=== PATIENT | male | born 1955 | race African-American/Black ===

== ENCOUNTER 2016-09-11 17:00 | Emergency (ER) | payer OTHER ==
[~2016-09-11] VITALS: Ht 180.3 cm; Wt 97.5 kg
[~2016-09-11 17:00] MED LIST: BACTRIM-DS1 EA ORAL
[2016-09-11] MEDS ORDERED: ANDROGEL2.5 GM TD (17:27)
--- NOTE | 2016-09-11 17:39 | Emergency Room Report ---
History of Present Illness General Chief Complaint: Pain Source: Patient Present Illness HPI Patient present with complaints of bodyaches Reports that initially he felt a sensitivity to the skin That progressed into more of an achy feeling Denies any obvious fevers denies any chest pain or shortness of breath denies any back or flank pain denies any vomiting or diarrhea Denies any change in medications Denies any recent travel or trauma Allergies: Coded Allergies: No Known Allergies (Unverified , 07/23/13) Patient History Past Medical History: see triage record Pertinent Family History: none Reviewed Nursing Documentation: PMH: Agreed, PSxH: Agreed Nursing Documentation-PMH Past Medical History: No Stated History Review of Systems All Other Systems: negative except mentioned in HPI Physical Exam Vital Signs Date Time Temp Pulse Resp B/P Pulse Ox O2 Delivery O2 Flow Rate FiO2 09/11/16 17:24 97.9 60 14 135/81 100 Room Air Sp02 EP Interpretation: reviewed, normal General Appearance: well appearing, no apparent distress Head: normocephalic, atraumatic Eyes: bilateral eye EOMI, bilateral eye PERRL ENT: hearing grossly normal, normal pharynx, TMs + canals normal, uvula midline Neck: full range of motion, supple, no meningismus, no bony tend Respiratory: lungs clear, normal breath sounds, no rhonchi, no respiratory distress, no retraction, no accessory muscle use Cardiovascular #1: normal peripheral pulses, regular rate, rhythm, no edema, no gallop, no JVD, no murmur Gastrointestinal: normal bowel sounds, non tender, soft, no mass, no organomegaly, non-distended, no guarding, no hernia, no pulsatile mass, no rebound Genitourinary: no CVA tenderness Musculoskeletal: normal inspection Neurologic: oriented x3, responsive, caterer helper III-XII nml as tested, motor strength/ tone normal, sensory intact Psychiatric: mood/affect normal Skin: normal color, no rash, warm/dry, palpation normal Lymphatic: normal inspection, no adenopathy Medical Decision Making Diagnostic Impression: Primary Impression: Myalgia ER Course Multiple differentials are considered Including but not limited to rhabdomyolysis, flulike symptoms bacteremia Patient's , baseline bloodwork were appropriate patient remains hemodynamically stable Appears patient has been underdosing himself with one [id number] Advil for the discomfort Possible viral syndrome considered and patient will have initial conservative outpatient followup Labs Test 09/11/16 17:48 White Blood Count 9.1 K/UL (4.8-10.8) Red Blood Count 5.38 M/UL (4.70-6.10) Hemoglobin 16.1 G/DL (14.2-18.0) Hematocrit 47.9 % (42.0-52.0) Mean Corpuscular Volume 89 FL (80-99) Mean Corpuscular Hemoglobin 29.9 PG (27.0-31.0) Mean Corpuscular Hemoglobin Concent 33.7 G/DL (32.0-36.0) Red Cell Distribution Width 11.4 % (11.6-14.8) Platelet Count 217 K/UL (150-450) Mean Platelet Volume 6.4 FL (6.5-10.1) Neutrophils (%) (Auto) 75.4 % (45.0-75.0) Lymphocytes (%) (Auto) 16.7 % (20.0-45.0) Monocytes (%) (Auto) 6.1 % (1.0-10.0) Eosinophils (%) (Auto) 1.4 % (0.0-3.0) Basophils (%) (Auto) 0.5 % (0.0-2.0) Sodium Level 140 mEQ/L (135-145) Potassium Level 3.6 mEQ/L (3.4-4.9) Chloride Level 98 mEQ/L (98-107) Carbon Dioxide Level 27 mEQ/L (20-30) Anion Gap 15 (5-15) Blood Urea Nitrogen 17 mg/dL (7-23) Creatinine 1.2 mg/dL (0.7-1.2) Estimat Glomerular Filtration Rate > 60 mL/min (>60) Glucose Level 101 mg/dL (74-106) Calcium Level 9.3 mg/dL (8.6-10.2) Total Bilirubin 0.5 mg/dL (0.0-1.2) Aspartate Amino Transf (AST/SGOT) 15 U/L (5-40) Alanine Aminotransferase (ALT/SGPT) 11 U/L (3-41) Alkaline Phosphatase 68 U/L (40-129) Total Creatine Kinase 99 U/L (38-174) Total Protein 6.9 g/dL (6.6-8.7) Albumin 4.2 g/dL (3.5-5.2) Globulin 2.7 g/dL Albumin/Globulin Ratio 1.5 (1.0-2.7) Lipase 41 U/L (< 60) Last Vital Signs Date Time Temp Pulse Resp B/P Pulse Ox O2 Delivery O2 Flow Rate FiO2 09/11/16 17:24 97.9 60 14 135/81 100 Room Air Status: unchanged Disposition: HOME, SELF-CARE Condition: Stable Additional Instructions: Patient is provided with the discharge instructions notified to follow up with primary doctor in the next 2-3 days otherwise return to the er with any worsening symptoms. Please note that this report is being documented using [employer] technology. This can lead to erroneous entry secondary to incorrect interpretation by the dictating instrument. JUAN RAMON HILL D.O. Sep 11, 2016 17:39
[2016-09-11 18:10] LABS: BASOPHILS % (AUTO) 0.5 % (0.0-2.0); EOSINOPHILS % (AUTO) 1.4 % (0.0-3.0); LYMPHOCYTES % (AUTO) 16.7 % (20.0-45.0); MEAN CORPUSCULAR HEMOGLOBIN 29.9 PG (27.0-31.0); MEAN CORPUSCULAR HGB CONC 33.7 G/DL (32.0-36.0); MEAN CORPUSCULAR VOLUME 89 FL (80-99); MEAN PLATELET VOLUME 6.4 FL (6.5-10.1); MONOCYTES % (AUTO) 6.1 % (1.0-10.0); NEUTROPHILS % (AUTO) 75.4 % (45.0-75.0); PLATELET COUNT 217 K/UL (150-450); RED BLOOD COUNT 5.38 M/UL (4.70-6.10); RED CELL DISTRIBUTION WIDTH 11.4 % (11.6-14.8); WHITE BLOOD COUNT 9.1 K/UL (4.8-10.8)
[2016-09-11 18:23] LABS: ALANINE AMINOTRANSFERASE 11 U/L (3-41); ALBUMIN/GLOBULIN RATIO 1.5 (1.0-2.7); ANION GAP 15 (5-15); ASPARTATE AMINO TRANSFERASE 15 U/L (5-40); CALCIUM 9.3 mg/dL (8.6-10.2); CARBON DIOXIDE 27 mEQ/L (20-30); CHLORIDE 98 mEQ/L (98-107); CREATININE 1.2 mg/dL (0.7-1.2); GLOMERULAR FILTRATION RATE > 60 mL/min (>60); HEMOLYSIS 10; LIPASE 41 U/L (< 60); POTASSIUM 3.6 mEQ/L (3.4-4.9); SODIUM 140 mEQ/L (135-145); TOTAL PROTEIN 6.9 g/dL (6.6-8.7)
[2016-09-11 19:03] VITALS: BP 127/75
== END 2016-09-11 19:06 | disposition home or self-care (01) ==
LOC: EMR 17:55
DX: M79.1 Myalgia (principal)
CPT/HCPCS: 36415; 80053; 82550; 83690; 85025; 99283

== ENCOUNTER 2016-09-15 10:09 | Emergency (ER) | payer OTHER ==
[~2016-09-15] VITALS: Ht 182.9 cm; Wt 97.5 kg
[~2016-09-15 10:09] MED LIST changes: +ANDROGEL2.5 GM TD
[2016-09-15] MEDS ORDERED: ANDROGEL2.5 GM TD (10:22)
[2016-09-15 11:00] VITALS: BP 141/82
[2016-09-15] MEDS ORDERED: CYCLOBENZAPRINE10 MG ORAL (11:11)
[2016-09-15] MEDS ORDERED: TYLENOL EXTRA500 MG ORAL (11:11)
[2016-09-15] MEDS ORDERED: RANITIDINE HCL150 MG ORAL (11:11)
[2016-09-15 11:15] VITALS: BP 141/82
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
== END 2016-09-15 11:15 | disposition home or self-care (01) ==
LOC: EMR 10:35
DX: S39.82XD Other specified injuries of lower back, subsequent encounter (principal); V49.9XXD Car occupant (driver) (passenger) injured in unspecified traffic accident, subsequent encounter
CPT/HCPCS: 99284

== ENCOUNTER 2017-04-17 00:06 | Emergency (ER) | payer OTHER ==
[~2017-04-17] VITALS: Ht 180.3 cm; Wt 97.5 kg
[~2017-04-17 00:06] MED LIST changes: +CYCLOBENZAPRINE10 MG ORAL; +RANITIDINE HCL150 MG ORAL; +TYLENOL EXTRA500 MG ORAL
[2017-04-17] MEDS: Acetaminophen 500mg (ES) tab ORAL ONE ×2 (00:24→00:33)
[2017-04-17] MEDS ORDERED: AMOXICILLIN500 MG ORAL (00:43)
[2017-04-17] MEDS ORDERED: PROMETHAZINE-C118 M1 ORAL (00:43)
[2017-04-17 00:53] VITALS: BP 128/78
[2017-04-17 00:54] VITALS: BP 134/78
--- NOTE | 2017-04-17 04:55 | Emergency Room Report ---
History of Present Illness General Chief Complaint: Fever Source: Patient Present Illness HPI 61-year-old male presents ED complaining of cough and fever x3 days. Patient notes productive cough with chills. Patient is febrile in triage. Patient denies shortness of breath. Denies sick contacts or recent travel. Denies chest pain. No other aggravating relieving factors. Denies any other associated symptoms Allergies: Coded Allergies: No Known Allergies (Unverified , 07/23/13) Patient History Past Medical History: none Past Surgical History: none Pertinent Family History: none Social History: Denies: smoking, alcohol use, drug use Immunizations: UTD Reviewed Nursing Documentation: PMH: Agreed, PSxH: Agreed Nursing Documentation-PMH Past Medical History: No Stated History Review of Systems All Other Systems: negative except mentioned in HPI Physical Exam Vital Signs Date Time Temp Pulse Resp B/P (MAP) Pulse Ox O2 Delivery O2 Flow Rate FiO2 04/17/17 00:14 102.7 93 19 134/78 96 Room Air Sp02 EP Interpretation: reviewed, normal General Appearance: no apparent distress, alert, GCS 15, non-toxic Head: normocephalic, atraumatic Eyes: bilateral eye normal inspection, bilateral eye PERRL ENT: hearing grossly normal, normal pharynx, no angioedema, normal voice Neck: full range of motion, supple/symm/no masses Respiratory: chest non-tender, normal breath sounds, crackles, speaking full sentences Cardiovascular #1: regular rate, rhythm, no edema Cardiovascular #2: 2+ carotid (R), 2+ carotid (L), 2+ radial (R), 2+ radial (L) , 2+ dorsalis pedis (R), 2+ dorsalis pedis (L) Gastrointestinal: normal bowel sounds, non tender, soft, non-distended, no guarding, no rebound Rectal: deferred Genitourinary: normal inspection, no CVA tenderness Musculoskeletal: back normal, gait/station normal, normal range of motion, non- tender Neurologic: alert, oriented x3, responsive, motor strength/tone normal, sensory intact, speech normal Psychiatric: judgement/insight normal, memory normal, mood/affect normal, no suicidal/homicidal ideation Reflexes: 3+ bicep (R), 3+ bicep (L), 3+ tricep (R), 3+ tricep (L), 3+ knee (R) , 3+ knee (L) Skin: normal color, no rash, warm/dry, well hydrated Lymphatic: no adenopathy Medical Decision Making Diagnostic Impression: Primary Impression: Atypical pneumonia ER Course 61-year-old male presents ED complaining of cough, fever Differential-URI, bronchitis, pneumonia Patient based on stretcher. After initial history I ordered Motrin, chest x-ray Chest x-ray shows no lobar infiltrate however there is some atelectasis in the bases with some effusion. Clinically we will treat as a typical pneumonia and prescribed antibiotics per CURB 65 criteria, patient can be safely discharged home and can be treated as outpatient given amoxicillin in ED Diagnosis - atypical pneumonia stable and discharged to home with Rx Amoxicillin, cough syrup. f/up with pMD. return to ED if symptoms recur/worsen Chest X-Ray Diagnostic Results Chest X-Ray Diagnostic Results : Chest X-Ray Ordered: Yes # of Views/Limited/Complete: 1 View Indication: Other - cough EP Interpretation: Yes Interpretation: no consolidation, no pneumothorax, no acute cardiopulmonary disease, other - bilateral effusion/atelectasis Impression: Other - ateletasis Electronically Signed by: Electronically signed by Power Che MD Last Vital Signs Date Time Temp Pulse Resp B/P (MAP) Pulse Ox O2 Delivery O2 Flow Rate FiO2 04/17/17 00:54 102.7 19 134/78 96 Room Air 04/17/17 00:53 80 Status: improved Disposition: HOME, SELF-CARE Condition: Stable Scripts Codeine/Promethazine Hcl* (PROMETHAZINE-CODEINE SYRUP*) 118 Ml Syrup 5 ML ORAL Q4H Y for For Cough, #118 ML 0 Refills Prov: POWER CHE M.D. 04/17/17 Amoxicillin* (AMOXIL*) 500 Mg Capsule 500 MG ORAL THREE TIMES A DAY, #21 CAP Prov: POWER CHE M.D. 04/17/17 [facility] Patient Instructions: Community-Acquired Pneumonia, Adult, [id number] POWER CHE M.D. Apr 17, 2017 04:55
--- NOTE | 2017-04-17 09:09 | Diagnostic Imaging Report ---
Indication: COUGH Technique: One view of the chest Comparison: none Findings: There is atelectasis and pleural fluid at the left lung base. There is a small amount of atelectasis at the right lung base as well. The upper lung [place] are clear. The heart size is normal. Impression: Left basilar atelectasis and pleural fluid. Minimal right basilar atelectasis This agrees with the preliminary interpretation provided by the emergency room physician
== END 2017-04-17 00:54 | disposition home or self-care (01) ==
LOC: EMR 00:29
DX: J18.9 Pneumonia, unspecified organism (principal)
CPT/HCPCS: 71010; 99284